=== PATIENT | male | born 1995 | race American Indian/Alaskan Native ===

== ENCOUNTER 2021-12-15 23:44 | Emergency (ER) | payer OTHER ==
[~2021-12-15] VITALS: Ht 170.2 cm; Wt 74.8 kg
[2021-12-16] MEDS ORDERED: PERIDEX473 M1 MM (01:57)
== END 2021-12-16 02:09 | disposition home or self-care (01) ==
LOC: ED 23:44
DX: S16.1XXA Strain of muscle, fascia and tendon at neck level, initial encounter (principal); S00.03XA Contusion of scalp, initial encounter; S06.9X9A Unspecified intracranial injury with loss of consciousness of unspecified duration, initial encounter; F10.129 Alcohol abuse with intoxication, unspecified; W18.30XA Fall on same level, unspecified, initial encounter; Y09 Assault by unspecified means
CPT/HCPCS: 70450; 72125; 99284-25

== ENCOUNTER 2022-04-08 22:54 | Emergency (ER) | payer OTHER ==
[~2022-04-08] VITALS: Ht 170.2 cm; Wt 74.8 kg
[~2022-04-08 22:54] MED LIST: PERIDEX473 M1 MM
== END 2022-04-09 03:30 | disposition home or self-care (01) ==
LOC: ED 22:54
DX: F10.129 Alcohol abuse with intoxication, unspecified (principal); Y90.9 Presence of alcohol in blood, level not specified
CPT/HCPCS: 96361; 96374; 99284-25; J2405; J7030